=== PATIENT | male | born 1950 | race Caucasian/White ===

== ENCOUNTER 2018-02-10 15:13 | Emergency (ER) | payer OTHER ==
[2018-02-10] MEDS ORDERED: Bacitracin Oint 1 GM U/D Packet TOP ONE ×2 (16:30→16:39)
[2018-02-10] MEDS ORDERED: Lidocaine 1% with EPINEPHrine 1:100,000 50 ML MDV INFILT STA (16:30)
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
--- NOTE | 2018-02-12 10:01 | CR ---
Hip Min 2V or 3V Lt CLINICAL HISTORY: Left hip pain FINDINGS: No fracture is identified. Joint space appears well maintained. The articular surfaces are smooth. IMPRESSION: Negative left hip.
== END 2018-02-10 17:30 | disposition home or self-care (01) ==
LOC: JP.ED 15:13
DX: S01.81XA Laceration without foreign body of other part of head, initial encounter (principal); S70.02XA Contusion of left hip, initial encounter; S40.212A Abrasion of left shoulder, initial encounter; S80.212A Abrasion, left knee, initial encounter; E03.9 Hypothyroidism, unspecified; Z88.2 Allergy status to sulfonamides; V28.4XXA Motorcycle driver injured in noncollision transport accident in traffic accident, initial encounter
CPT/HCPCS: 12011; 73502-26-LT; 73502-LT; 99284-25